=== PATIENT | male | born 1995 | race Caucasian/White ===

== ENCOUNTER 2017-09-30 20:26 | Emergency (ER) | payer SELFPAY ==
[~2017-09-30] VITALS: Ht 188 cm; Wt 79.8 kg
--- NOTE | 2017-09-30 21:05 | NUR ---
Patient discharged to home in stable conditon. Written and verbal after care instructions given. Patient verbalizes understanding of instructions.
== END 2017-09-30 21:05 | disposition home or self-care (01) ==
LOC: ER 20:28
DX: H92.01 Otalgia, right ear (principal)
CPT/HCPCS: A4663